=== PATIENT | female | born 1955 | race African-American/Black ===

== ENCOUNTER 2016-12-26 16:45 | Emergency (ER) | payer OTHER ==
[~2016-12-26] VITALS: Ht 162.6 cm; Wt 68.0 kg
[2016-12-26] MEDS ORDERED: IBUPROFEN600 MG ORAL (18:21)
[2016-12-26] MEDS ORDERED: GABAPENTIN300 MG ORAL (18:21)
[2016-12-26 18:41] VITALS: BP 122/79
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
== END 2016-12-26 18:45 | disposition home or self-care (01) ==
LOC: EMR 17:10
DX: M54.9 Dorsalgia, unspecified (principal); M54.30 Sciatica, unspecified side; V43.52XA Car driver injured in collision with other type car in traffic accident, initial encounter; Y92.410 Unspecified street and highway as the place of occurrence of the external cause; M47.816 Spondylosis without myelopathy or radiculopathy, lumbar region; Z88.6 Allergy status to analgesic agent; I10 Essential (primary) hypertension; M81.0 Age-related osteoporosis without current pathological fracture
CPT/HCPCS: 72192; 99284

== ENCOUNTER 2017-12-01 13:35 | Emergency (ER) | payer OTHER ==
[~2017-12-01] VITALS: Ht 165.1 cm; Wt 59.9 kg
[~2017-12-01 13:35] MED LIST: GABAPENTIN300 MG ORAL; IBUPROFEN600 MG ORAL
[2017-12-01 14:08] VITALS: BP 131/77
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
[2017-12-01] MEDS ORDERED: LIDODERM700 M1 TOPIC ×2 (14:31→15:44)
[2017-12-01] MEDS ORDERED: TYLENOL EXTRA500 MG ORAL ×2 (14:31→15:44)
[2017-12-01 14:57] VITALS: BP 131/77
== END 2017-12-01 15:00 | disposition home or self-care (01) ==
LOC: EMR 15:00
DX: S39.012A Strain of muscle, fascia and tendon of lower back, initial encounter (principal); X50.9XXA Other and unspecified overexertion or strenuous movements or postures, initial encounter; Y92.9 Unspecified place or not applicable; Y99.8 Other external cause status; I10 Essential (primary) hypertension; M81.0 Age-related osteoporosis without current pathological fracture; Z88.5 Allergy status to narcotic agent
CPT/HCPCS: 99283